=== PATIENT | male | born 1980 | race Caucasian/White ===

== ENCOUNTER → 2020-07-08 | Outpatient (CLI) | payer OTHER | LOC: COL.RAD 09:00 | DX: R90.82 White matter disease, unspecified (principal) | CPT/HCPCS: A9585 ==

== ENCOUNTER 2020-07-27 09:05 | Outpatient (CLI) | payer OTHER ==
[~2020-07-27] VITALS: Ht 170.2 cm; Wt 99.5 kg
[2020-07-27] VITALS (9 sets, daily range): BP systolic 102–136; BP diastolic 62–91; PULSE 56–69
[2020-07-27 12:19] LABS: GLUCOSE,CSF 60 mg/dL (40-70); TOTAL PROTEIN,CSF 72 mg/dL (15-45)
[2020-07-27 12:33] LABS: CSF COLOR PINK
[2020-07-27 12:34] LABS: CSF APPEARANCE CLEAR
[2020-07-27 12:35] LABS: CSF MONONUCLEAR 75 % (70-100); CSF POLYMORPHONUCLEAR 25 % (0-6); CSF RBC 1000 /mm3 (0-0)
--- NOTE | 2020-07-27 13:38 | NUR ---
Discharge instructions given to pt.Pt verbalizes understanding.Pt escorted out at this time.
[2020-07-29 14:52] LABS: CSF OLIG BD INTERPRETATION 0 bands (<2); CSF OLIGOCLONAL BANDING 1 bands (()); SE OLIGOCLONAL BANDING 1 bands (())
== END 2020-07-27 14:19 | disposition home or self-care (01) ==
LOC: COL.RAD 09:05
PROVIDERS: Psychiatry & Neurology Neurology
DX: R90.82 White matter disease, unspecified (principal)

== ENCOUNTER → 2020-09-09 | Outpatient (CLI) | payer OTHER ==
[2020-09-10 09:33] LABS: SJOGRENS SSB 11 U/mL (0-99)
[2020-09-10 19:04] LABS: LYME DISEASE ANTIBODIES Negative (Negative)
== END ==
LOC: COL.RAD 09:56
PROVIDERS: Psychiatry & Neurology Neurology
DX: G51.0 Bell's palsy (principal); R90.82 White matter disease, unspecified; Z79.899 Other long term (current) drug therapy; Q28.1 Other malformations of precerebral vessels